=== PATIENT | female | born 1995 | race African-American/Black ===

== ENCOUNTER 2019-08-14 19:47 | Emergency (ER) | payer MEDICAID, OTHER ==
[~2019-08-14] VITALS: Ht 160 cm; Wt 111.0 kg
[2019-08-14 21:15] VITALS: BP 104/74
== END 2019-08-14 21:48 ==
LOC: ED 21:42
DX: S32.2XXA Fracture of coccyx, initial encounter for closed fracture (principal); S16.1XXA Strain of muscle, fascia and tendon at neck level, initial encounter; V03.00XA Pedestrian on foot injured in collision with car, pick-up truck or van in nontraffic accident, initial encounter; Y93.89 Activity, other specified; Y92.488 Other paved roadways as the place of occurrence of the external cause; Y99.8 Other external cause status
CPT/HCPCS: 72050; 72220; 99284